=== PATIENT | male | born 1940 | race Caucasian/White ===

== ENCOUNTER 2016-09-12 13:08 | Inpatient (IN) ==
--- NOTE | 2016-09-09 21:42 | Discharge Summary ---
<Yazmin Agarwal - Last Filed: 09/11/16 16:43> Date of Encounter: 09/11/16 - Discharge Diagnosis (1) Left rotator cuff tear arthropathy Priority: Primary Status: Acute (2) HTN (hypertension) Priority: Secondary Status: Chronic Qualifiers: Hypertension type: essential hypertension Qualified Code(s): I10 - Essential (primary) hypertension (3) HLD (hyperlipidemia) Priority: Secondary Status: Chronic Qualifiers: Hyperlipidemia type: unspecified Qualified Code(s): E78.5 - Hyperlipidemia , unspecified (4) CAD (coronary artery disease) Priority: Secondary Status: Chronic Qualifiers: Coronary Disease-Associated Artery/Lesion type: unspecified vessel or lesion type Teller vs. transplanted heart: unspecified whether barrow or transplanted heart Associated angina: angina presence unspecified Qualified Code(s): I25.10 - Atherosclerotic heart disease of barrow coronary artery without angina pectoris (5) Obesity Priority: Secondary Status: Chronic Qualifiers: Obesity type: unspecified obesity type Obesity severity: morbid Qualified Code(s): E66.01 - Morbid (severe) obesity due to excess calories - Discharge Medications Home Medications: OxyCODONE Immed Rel [Roxicodone 5 MG] 5 - 10 mg PO Q6HR PRN #40 tablet 09/09/16 [Rx] Albuterol Sulfate [Albuterol Inhaler] 2 puff IH Q4HR PRN 09/12/16 [History] Aspirin Enteric Coated [Aspirin EC] 81 mg PO DAILY 09/12/16 [History] Azathioprine [Imuran] 75 mg PO DAILY 09/12/16 [History] Carvedilol [Coreg] 12.5 mg PO BID 09/12/16 [History] Docusate [Colace] 100 mg PO DAILY 09/12/16 [History] Furosemide [Lasix] 40 mg PO DAILY 09/12/16 [History] Hydralazine HCl 50 mg PO BID 09/12/16 [History] Isosorbide MONOnitrate (24 HR) [Imdur] 30 mg PO DAILY 09/12/16 [History] Losartan Potassium [Cozaar] 50 mg PO DAILY 09/12/16 [History] Magnesium Oxide [Magnesium] 400 mg PO Q12H 09/12/16 [History] Multivitamin [Multi-Day Vitamins] 1 each PO DAILY 09/12/16 [History] Omeprazole [PriLOSEC] 40 mg PO DAILY 09/12/16 [History] Potassium Chloride [Klor-Con 10] 10 meq PO DAILY 09/12/16 [History] Pravastatin Sodium [Pravachol] 40 mg PO DAILY 09/12/16 [History] Allergies/Adverse Reactions: Allergies No Known Allergies Allergy (Verified 09/12/16 14:00) Primary care physician: Luis Bucio - Patient Status Disposition: Home, Self-Care Condition: Good - Discharge Instructions Follow Up With: Cipriano Chew MD [Partnered Physician] - 09/21/16 8:00 am Luis Lopez MD [Primary Care Provider] - Additional Instructions: Discharge Instructions: Total Shoulder Please call [facility] ([phone]), your Primary Care Physician, or report to the Emergency Room if you have any of the following symptoms: Nausea, vomiting, fever greater that 101.5, swelling, chest pain, shortness of breath, increased pain/redness/drainage/odor for your incision site, numbness/ tingling, or any other concerning symptoms. ACTIVITY: Always keep your arm in the sling. Do not raise your arm away from your body. Do not use your arm to help with getting in or out of bed. No weight bearing permitted. Only perform those exercises given to you by your therapist. MEDICATIONS: Upon discharge resume your home medications. Take all the medications as prescribed. Take a stool softener if taking narcotic pain medications. Stool softeners are only effective if you drink enough fluids. Drink 6-8 glass of water or fluids a day, unless this is not allowed for another health problem. Despite using stool softeners, if you haven't had a bowel movement in 3 days, please switch to a gentle laxative. Gentle laxatives are sold over the counter. You should have a bowel movement within 24 hours, if not call the office. You will be discharged from the hospital with a prescription for pain medication. You are encouraged to decrease the use of narcotic pain medication as tolerated. Should you require a refill, please call the office. [facility] prescribes narcotic pain medication for only 4-6 weeks after surgery. If you require pain medication beyond this time period, you may be referred to your Primary Care Physician or to the Pain Clinic for further evaluation. Plan ahead for refills on pain medication as many narcotics either need to be picked up at the office or mailed. It is best to call 48-72 hours in advance of needing a prescription refill so you don't run out of medication. To help control the post-operative pain, you may take NSAIDs (Aleve,Advil, Motrin, ibuprofen, naprosyn) or Tylenol as prescribed on the bottle in addition to the pain medication. WOUND CARE: Leave the dressing on for 7 days. You may change the dressing if it becomes saturated greater than 50%. You can shower but not a tub bath or submerge your incision in water. Wash your hands with antibacterial soap, rinse and dry prior to any wound care. If you have ilana the visiting nurse or rehab facility can remove the stapes 10-14 days after surgery and place steri -strips across the wound. Leave the steri-strips in place until they fall off on their won. You may let water from the shower run on top of the steri- stirips. If you do not have a visiting nurse or rehab facility, you will need to return to the office at 10-14 days for the ilana to be removed. FOLLOW-UP: Please follow up with your surgeon in the orthopedic clinic, as scheduled - Hospital Course Hospital course: Mr. Vaughn is a 76 year old male - Time Spent with Patient Total time spent providing and/or coordinating discharge services: <Cipriano Chew - Last Filed: 09/20/16 07:33> Date of Encounter: 09/20/16 Time of Encounter: 07:32 - Discharge Diagnosis (1) Left rotator cuff tear arthropathy Priority: Primary Status: Acute (2) CAD (coronary artery disease) Priority: Secondary Status: Chronic Qualifiers: Coronary Disease-Associated Artery/Lesion type: unspecified vessel or lesion type Teller vs. transplanted heart: unspecified whether barrow or transplanted heart Associated angina: angina presence unspecified Qualified Code(s): I25.10 - Atherosclerotic heart disease of barrow coronary artery without angina pectoris (3) HTN (hypertension) Priority: Secondary Status: Chronic Qualifiers: Hypertension type: essential hypertension Qualified Code(s): I10 - Essential (primary) hypertension (4) Obesity Priority: Secondary Status: Chronic Qualifiers: Obesity type: unspecified obesity type Obesity severity: morbid Qualified Code(s): E66.01 - Morbid (severe) obesity due to excess calories (5) HLD (hyperlipidemia) Priority: Secondary Status: Chronic Qualifiers: Hyperlipidemia type: unspecified Qualified Code(s): E78.5 - Hyperlipidemia , unspecified Primary care physician: Luis Bucio - Patient Status Functional capacity at discharge: independent ambulation Overall status at discharge: patient is progressing back to baseline - Hospital Course Hospital course: Mr. Vaughn is a 76 year old male The patient had an uneventful postoperative course. They received antibiotics and physical therapy and were discharged in stable condition. There will follow -up in the office in 2 weeks. - Time Spent with Patient Total time spent providing and/or coordinating discharge services:
[2016-09-12] MEDS ORDERED: CeFAZolin Pre 2,000 MG/100 ML 2,000 MG/100 ML BAG IVPB ONE (13:53)
[2016-09-12] MEDS ORDERED: Lidocaine 1% 20 ML MDV ID ONE (13:53)
[2016-09-12] MEDS ORDERED: Albuterol 2.5 MG/3 ML NEBULIZER IH ONE (13:53)
--- NOTE | 2016-09-12 13:58 | History & Physical Report ---
Date of Encounter: 09/12/16 Time of Encounter: 13:58 24 Hour HP Update - Instructions Instructions: If the History and Physical is less than 30 days old and was completed prior to A.M. admission and or procedure and has NOT been updated on calendar day of procedure please complete this update prior to performing procedure. - Update Patient reports changes in Medical Condition: No Changes in assessment/condition: No Changes in Medication: No Preop tests/diagnostics Reviewed: Yes Surgery Remains Indicated: Yes Consent for Planned Operative Procedure(s) Verified: Yes - Pre-Operative Checklist Preoperative Checklist Indicated: No Prophylactic Antibiotic Ordered: Yes Is VTE Prophylaxis Indicated?: Yes
[2016-09-12] MEDS ORDERED: Ringers Solution, Lactated 1,000 ML IVC SCH ×2 (14:00→16:54)
--- NOTE | 2016-09-12 14:18 | Anesthesia Evaluation PreOp ---
Date of Encounter: 09/12/16 Time of Encounter: 14:14 - Past History Planned Operation: Left Shoulder RCR Cardiac History: HTN, Hyperlipidemia, Arrhythmia (Afib by hx), Cardiac Surgery, Other (CAD) Pulmonary History: Denies Any Significant HX, COPD [employer]ING [employer]ER History: Denies Any Significant HX Other Medical History: Denies Any Significant HX Anesthesia History: No Prior Anesthetic Complications, Past Anesthesia ( colonoscopy, EGD, b. TKR, CABG x 4, hernia, ctr, GB) Alcohol Use: none Drug use: none Medications and Allergies OxyCODONE Immed Rel [Roxicodone 5 MG] 5 - 10 mg PO Q6HR PRN #40 tablet 09/09/16 [Rx] Albuterol Sulfate [Albuterol Inhaler] 2 puff IH Q4HR PRN 09/12/16 [History] Aspirin Enteric Coated [Aspirin EC] 81 mg PO DAILY 09/12/16 [History] Azathioprine [Imuran] 75 mg PO DAILY 09/12/16 [History] Carvedilol [Coreg] 12.5 mg PO BID 09/12/16 [History] Docusate [Colace] 100 mg PO DAILY 09/12/16 [History] Furosemide [Lasix] 40 mg PO DAILY 09/12/16 [History] Hydralazine HCl 50 mg PO BID 09/12/16 [History] Isosorbide MONOnitrate (24 HR) [Imdur] 30 mg PO DAILY 09/12/16 [History] Losartan Potassium [Cozaar] 50 mg PO DAILY 09/12/16 [History] Magnesium Oxide [Magnesium] 400 mg PO Q12H 09/12/16 [History] Multivitamin [Multi-Day Vitamins] 1 each PO DAILY 09/12/16 [History] Omeprazole [PriLOSEC] 40 mg PO DAILY 09/12/16 [History] Potassium Chloride [Klor-Con 10] 10 meq PO DAILY 09/12/16 [History] Pravastatin Sodium [Pravachol] 40 mg PO DAILY 09/12/16 [History] Allergies No Known Allergies Allergy (Verified 09/12/16 14:00) - Meds/Allergy Pre-op Review Medications Reviewed: Yes Allergies Reviewed: Yes Beta Blockers on Current Med List: Yes If Beta Blockers taken, Date/Time (Last Dose taken): 09:30 09/12/2016 Anesthesia Results - Labs Laboratory Tests 09/05/16 09/05/16 09/05/16 14:51 14:51 14:51 WBC 4.1 L Hgb 12.5 L Hct 36.0 L MCV 96.8 INR 1.0 Sodium 136 Potassium 3.8 Chloride 102 Carbon Dioxide 24 BUN 12 Creatinine 1.00 Stress 09/23/2013 Indeterminate Submaximal stress achieved Echo 07/03/13 EF 60% no pHTNmin. valvular dx - Imaging EKG: image reviewed (SR, 1st degree AV block, supraventricular premature complexes, RBBB) Anesthesia Exam O2 Sat Height 1.68 m Height 1.68 m Weight 101.605 kg Weight 101.605 kg O2 Sat by Pulse Oximetry 97 Vital Signs Temp Pulse Resp BP Pulse Ox 98.0 F 69 22 186/86 97 09/12/16 14:18 09/12/16 14:18 09/12/16 14:18 09/12/16 14:18 09/12/16 14:18 Height: 5'6'' Weight: 224# NPO (# of Hours): > 8 hrs Pain Scale: 0 Pain Scale Used: Numeric (1 - 10) - HEENT Pupil (Motor): Pupils equal, EOMI Mallampati: III (limited neck extension) Oral Opening: Greater than 3 - W[employer]ER LOC: Oriented [employer]ER Motor: Normal RUE, Normal LUE, Normal RLE, Normal LLE, Normal Face [employer]ER Sensory: Normal: RUE, LUE, RLE, LLE, Face - Cardiac Rhythm: Regular Murmur: None JVD: No Carotid Bruit: No - Pulmonary Breath Sounds: bilateral Clear Respiratory Effort: Symmetrical Anesthesia Assess/Plan ASA Score: 3 Modified [place] Scale for Level of Consciousness: Cooperative, oriented, and tranquil Anesthetic Plan: General, Regional (Brachial Plexus block) Autologous Blood: Yes Monitoring Plan: Standard Monitors Recovery Plan: PACU
[2016-09-12] MEDS ORDERED: *HR* FentaNYL (PF) 100 MCG/2 ML VIAL ONE (14:36)
[2016-09-12] MEDS ORDERED: *HR* Midazolam HCl 2 MG/2 ML VIAL ONE (14:36)
[2016-09-12] MEDS ORDERED: *HR* Propofol 200 MG/20 ML VIAL IVP ONE (14:37)
[2016-09-12] MEDS ORDERED: *HR* Succinylcholine 200 MG/10 ML VIAL IVP ONE (14:38)
[2016-09-12] MEDS ORDERED: Bupivacaine/Clonidine Syringe 1 EACH SYRINGE ONE (14:55)
[2016-09-12] MEDS ORDERED: Lidocaine -MPF 2% 2 ML VIAL ONE (15:00)
--- NOTE | 2016-09-12 15:27 | Anesthesia Procedures ---
Date of Encounter: 09/12/16 Time of Encounter: 15:15 Procedures: Anesthesia - Nerve Block Procedure Date: 09/12/16 Time: 15:40 Checklist: Correct Patient Identifier, Correct procedure, History checked Correct side: Left Blood Thinner: No Monitor Applied: EKG, BP, Pulse Oximetry Supplemental Oxygen via Nasal Cannula (L/min): 2 Sedation: Versed (mg): 2 Sedation: Fentanyl (mcg): 100 Indication: Post Op Analgesia Block Type: Supraclavicular Sterile Technique: Yes Ultrasound used: Yes Anatomy identified: Yes Visual spread of Local: Yes Blood on Needle Aspiration: No Smooth Injection of Local: Yes Pain with Injection of Local: No Prep: Chlorhexadine Local: 0.25% Bupivicaine w/Clonidine 20 mcg/cc Number of Attempts: 1 Complications: None/effective block Vitals: VSS
[2016-09-12] MEDS ORDERED: Ondansetron 4 MG/2 ML VIAL ONE (16:01)
[2016-09-12] MEDS ORDERED: Dexamethasone 4 MG/ML VIAL ONE (16:01)
--- NOTE | 2016-09-12 16:01 | Orthopedic Operative Note ---
Date of procedure: 09/12/16 Pre-op diagnosis: Left shoulder cuff tear arthropathy Post-op diagnosis: same Procedure: Procedure: Left Total Shoulder Replacment Reverse Estimated blood loss: 100 cc Hardware:Arthrex large glenoid baseplate, 2 4.5 screws. 1 6.5 screw, 42 lateral glenosphere, 10 humeral stem, poly insert 3 Exam Under anesthesia: Full motion and no instability Procedural Notes: Grade 4 arthritic changes glenoid humeral head irreparable tear supraspinatus tendon. Operative procedure: The patient was brought to the operating room and placed on the operating room table. After general anesthesia was administered the operative shoulder was examined. Findings were noted. The patient was placed in the modified beachchair position. All pressure points were padded appropriately. And the head was stabilized in the neutral position. The operative extremity was prepped and draped in the sterile surgical fashion. The patient received IV antibiotics prior to skin incision. A standard deltopectoral approach was made to the operative shoulder. Incision was made to the skin and subcutaneous tissue,hemo stasis was obtained with Bovie cautery. Using careful blunt dissection the cephalic vein was identified and mobilized medially. The deltopectoral interval was developed and the clavipectoral fascia was incised. The subscap was irreparabl.. The humerus was dislocated patient noted to have irreparable tear supraspinatus tendon, and the humeral cut was made along the anatomic neck. Patient noted to have grade 4 arthritic changes humeral head. Anterior and posterior Bankart retractors were placed to expose the glenoid. Patient noted to have grade 4 arthritic changes glenoid socket. The glenoid guide was seated and the centering hole was made. It was reamed with the appropriate reamer. The large baseplate was seated and secured with (2) 4.5 screws and one 6.5 screw. The baseplate was irrigated and dried and the 42 lateral Glenosphere was seated and secured with the Elder taper. The Elder taper was tested and found to be secure the humerus was redislocated and prepared with the diaphyseal reamers, followed by a broaching process up to the appropriate size 10 and in the patient 's anatomic version. The metaphyseal reamer was then utilized. Trial reduction found the shoulder to be relocatable. Trial components were removed and drill holes were placed in the lesser tuberosity. The subscap was irreparable. The appropriate 10 stem was impacted in place in the patient's anatomic version. Trial reduction found the shoulder to be relocatable and stable with the appropriate 3. Trial component was removed and the 3 Soumya was seated and secured the shoulder was reduced. The shoulder had excellent motion and excellent stability and no evidence of dislocation. The deep tissue was irrigated with pulse irrigation. The subscap was repaired incorporating the biceps tendon for biceps tenodesis and a subscap repair. The deltopectoral interval was closed with a running #1 PDS suture, subcutaneous tissue was irrigated and closed with 0 PDS suture, the skin was closed with Dermabond. The patient was placed in a sterile dressing, abduction brace and extubated. The patient was then transferred to the recovery room in stable condition. Anesthesia: JEEVAN Surgeon: Cipriano Chew Pipelines Supervisor: Yazmin Agarwal Condition: stable Disposition: PACU
--- NOTE | 2016-09-12 16:39 | Anesthesia Evaluation Post Op ---
Date of Encounter: 09/12/16 Time of Encounter: 16:39 - Vital Signs Vital Signs: vsss - Lungs Lungs: Clear Ascult./Percussion - Airway Airway: Non-obstructed - Cardiovascular Baseline Rhythm - Mental Status Mental Status: Asleep with brisk response to light stimulation - Pain Pain Scale used: Emily (Faces) - Nausea Vomiting Nausea Vomiting: Not Present - Hydration Hydration: Ice chips - Discharge PostOp Status: Transfer Patient to floor
[2016-09-12] MEDS ORDERED: *HR* OxyCODONE Immed Rel 5 MG TABLET PO PRN (16:54)
[2016-09-12] MEDS ORDERED: Naloxone 0.4 MG/ML INJ IVP PRN (16:54)
[2016-09-12] MEDS ORDERED: Sennosides 8.6 MG TABLET PO PRN (16:54)
[2016-09-12] MEDS ORDERED: *HR* HYDROmorphone (PF) 1 MG/ML SYRINGE IVP PRN (16:54)
[2016-09-12] MEDS ORDERED: Ondansetron 4 MG/2 ML VIAL IVP PRN (16:54)
[2016-09-12] MEDS ORDERED: Temazepam 15 MG CAPSULE PO PRN (16:54)
[2016-09-12] MEDS ORDERED: MOM Conc 10 ML UD.LIQ PO PRN (16:54)
[2016-09-12 17:04] LABS: Hematocrit 33.9 % (37.5-50.1); Hemoglobin 11.8 g/dL (12.9-16.9)
[2016-09-12] MEDS: *HR* Enoxaparin 30 MG/0.3 ML SYRINGE SQ SCH (17:56)
[2016-09-12] MEDS: Magnesium Oxide 400 MG TABLET PO SCH (17:57)
[2016-09-12] MEDS ORDERED: *HR* Enoxaparin 30 MG/0.3 ML SYRINGE SQ SCH (18:00)
[2016-09-12] MEDS: hydrALAZINE 25 MG TABLET PO SCH (20:59)
[2016-09-12] MEDS: *HR* OxyCODONE Immed Rel 5 MG TABLET PO PRN (21:08)
[2016-09-12] MEDS: ceFAZolin 2,000 MG in D5% in Water 100 ML IVPB SCH (23:52)
[2016-09-13] MEDS: Magnesium Oxide 400 MG TABLET PO SCH (04:25)
[2016-09-13] MEDS: *HR* OxyCODONE Immed Rel 5 MG TABLET PO PRN ×2 (04:25→12:25)
[2016-09-13] MEDS: *HR* Enoxaparin 30 MG/0.3 ML SYRINGE SQ SCH (04:26)
[2016-09-13 05:38] LABS: Hematocrit 30.4 % (37.5-50.1); Hemoglobin 10.6 g/dL (12.9-16.9)
[2016-09-13] MEDS: ceFAZolin 2,000 MG in D5% in Water 100 ML IVPB SCH (08:34)
[2016-09-13] MEDS ORDERED: Isosorbide MONOnitrate (24 HR) 30 MG TAB.ER.24H PO SCH (09:00)
[2016-09-13] MEDS ORDERED: Multivit/Ca/Min/Fe/FA 1 TAB TABLET PO SCH (09:00)
[2016-09-13] MEDS ORDERED: Furosemide 40 MG TABLET PO SCH (09:00)
[2016-09-13] MEDS ORDERED: Aspirin Enteric Coated 81 MG Tablet PO SCH (09:00)
[2016-09-13] MEDS: hydrALAZINE 25 MG TABLET PO SCH (10:49)
[2016-09-13 12:21] VITALS: BP 169/80
== END 2016-09-13 13:25 | disposition home health service (06) | DRG 483 ==
LOC: SAMDAY 13:08 → 3NENU 16:56
PROVIDERS: ADMIT Orthopaedic Surgery; ATTEND Orthopaedic Surgery